=== PATIENT | female | born 1945 | race Caucasian/White ===

== ENCOUNTER 2020-06-13 12:36 | Inpatient (IN) | payer OTHER ==
[2020-06-13] MEDS ORDERED: SODIUM CHLORIDE 0.9% 500 ML INFUS.BAG IV ONE (14:44)
[2020-06-13] MEDS ORDERED: morphine CARPU-JECT 2 MG/1 ML DISP.SYRIN IVPUSH ONE (14:48)
[2020-06-13] MEDS ORDERED: ACETAMINOPHEN 1000 MG/100 ML VIAL (NON FORMULARY) IVPB ONE (14:48)
[2020-06-13 16:47] LABS: BASO % 0.5 % (0-2.0); EOS % 0.2 % (0-4.5); HEMATOCRIT 38.7 % (32.4-45.2); HEMOGLOBIN 12.8 GM/dL (10.7-15.3); LYMPH % 13.3 % (8-40); MCH 29.6 pg (25.7-33.7); MCHC 33.1 g/dl (32.0-36.0); MEAN CELL VOLUME 89.5 fl (80-96); MEAN PLT VOLUME 12.8 fl (7.5-11.1); MONO % 9.3 % (3.8-10.2); NEUT % 76.7 % (42.8-82.8); PLATELET COUNT 117 K/MM3 (134-434); RBC 4.33 M/mm3 (3.60-5.2); RDW 15.1 % (11.6-15.6); WHITE BLOOD COUNT 12.6 K/mm3 (4.0-10.0)
[2020-06-13] MEDS ORDERED: ACETAMINOPHEN INJECTION 100 ML IVPB ONE (17:22)
[2020-06-13 17:49] LABS: PLATELET ESTIMATE DECREASED
[2020-06-13] MEDS ORDERED: MORPHINE SULFATE 2 MG/ML VIAL ONE (18:30)
[2020-06-13 19:05] LABS: BLOOD UREA NITROGEN 8.2 mg/dL (7-18); CALCIUM 8.6 mg/dL (8.5-10.1)
[2020-06-13 19:06] LABS: ALBUMIN 2.5 g/dl (3.4-5.0)
[2020-06-13 19:09] LABS: CREATININE 0.7 mg/dL (0.55-1.3)
[2020-06-13 19:10] LABS: BILIRUBIN,TOTAL 1.8 mg/dL (0.2-1); TOT PROT 5.8 g/dl (6.4-8.2)
[2020-06-13 19:14] LABS: POTASSIUM 2.9 mmol/L (3.5-5.1)
[2020-06-13] MEDS ORDERED: ASPIRIN 325 MG TABLET PO ONE (19:24)
[2020-06-13] MEDS ORDERED: POTASSIUM CHLORIDE TABS 20 MEQ TABLET.ER (FP) PO ONE (19:26)
[2020-06-13] MEDS ORDERED: POTASSIUM CHLORIDE TABS 10 MEQ TABLET.ER (FP) ONE (19:43)
[2020-06-13] MEDS ORDERED: ASPIRIN 325 MG ENTERIC COATED TABLET (FP) ONE (19:43)
[2020-06-13 23:29] LABS: POTASSIUM 2.8 mmol/L (3.5-5.1)
[2020-06-14] MEDS ORDERED: KCL 10 MEQ IVPB 10 MEQ/100 ML INFUS.BAG IVPB ONE (01:25)
[2020-06-14] MEDS: KCL 10 MEQ IVPB 10 MEQ/100 ML INFUS.BAG IVPB SCH ×3 (01:26→03:35)
[2020-06-14] MEDS: INSULIN SLIDING SCALE (NOVOLOG) 1 VIAL SQ SCH ×5 (01:35→21:27)
[2020-06-14] MEDS: SODIUM CHLORIDE 1,000 ML with POTASSIUM CHLORIDE 40 MEQ IV SCH (03:47)
[2020-06-14 03:59] LABS: MAGNESIUM 1.5 mg/dL (1.8-2.4)
[2020-06-14 04:03] LABS: PHOSPHOROUS 2.9 mg/dL (2.5-4.9)
[2020-06-14] MEDS ORDERED: MAGNESIUM SULF 50% (8.12 MEQ/2 ML-1 GM VIAL) IVPB ONE (06:07)
[2020-06-14 06:32] LABS: BASO % 0.6 % (0-2.0); EOS % 0.8 % (0-4.5); HEMATOCRIT 38.2 % (32.4-45.2); HEMOGLOBIN 12.6 GM/dL (10.7-15.3); LYMPH % 20.7 % (8-40); MCH 29.8 pg (25.7-33.7); MEAN CELL VOLUME 90.3 fl (80-96); MEAN PLT VOLUME 13.2 fl (7.5-11.1); MONO % 10.7 % (3.8-10.2); NEUT % 67.2 % (42.8-82.8); PLATELET COUNT 114 K/MM3 (134-434); RBC 4.23 M/mm3 (3.60-5.2); RDW 15.2 % (11.6-15.6)
[2020-06-14 06:47] LABS: POTASSIUM 3.2 mmol/L (3.5-5.1)
[2020-06-14 06:54] LABS: CALCIUM 8.7 mg/dL (8.5-10.1)
[2020-06-14 06:55] LABS: ALBUMIN 2.4 g/dl (3.4-5.0); BLOOD UREA NITROGEN 8.2 mg/dL (7-18); MAGNESIUM 1.6 mg/dL (1.8-2.4)
[2020-06-14 06:58] LABS: CREATININE 0.6 mg/dL (0.55-1.3); PHOSPHOROUS 3.3 mg/dL (2.5-4.9)
[2020-06-14 06:59] LABS: BILIRUBIN,TOTAL 1.7 mg/dL (0.2-1); TOT PROT 5.4 g/dl (6.4-8.2)
[2020-06-14] MEDS ORDERED: MAGNESIUM SULFATE IN WATER 2 GM/50 ML IVPB IVPB ONE (08:18)
[2020-06-14] MEDS ORDERED: ENOXAPARIN NA (PORCINE) 40 MG/0.4 ML DISP.SYRIN SQ ONE (09:41)
[2020-06-14] MEDS ORDERED: ISOSORBIDE MONONITRATE 60 MG TAB.SR.24H (FP) PO ONE (09:41)
[2020-06-14] MEDS ORDERED: ISOSORBIDE MONONITRATE 60 MG TAB.SR.24H (FP) PO SCH (10:00)
[2020-06-14] MEDS: ENOXAPARIN NA (PORCINE) 40 MG/0.4 ML DISP.SYRIN SQ SCH (10:09)
[2020-06-14] MEDS ORDERED: POTASSIUM CHLORIDE TABS 20 MEQ TABLET.ER (FP) PO ONE ×2 (13:16→15:50)
[2020-06-14] MEDS: ROSUVASTATIN CA 20 MG TABLET (FP) PO SCH (22:25)
[2020-06-14] MEDS: MORPHINE SULFATE 2 MG/ML VIAL IVPUSH PRN (22:25)
[2020-06-15] MEDS: MORPHINE SULFATE 2 MG/ML VIAL IVPUSH PRN ×3 (06:02→18:42)
[2020-06-15] MEDS: INSULIN SLIDING SCALE (NOVOLOG) 1 VIAL SQ SCH ×4 (06:03→22:05)
[2020-06-15 08:17] LABS: POTASSIUM 3.5 mmol/L (3.5-5.1)
[2020-06-15 08:20] LABS: CALCIUM 8.5 mg/dL (8.5-10.1)
[2020-06-15 08:23] LABS: ALBUMIN 2.5 g/dl (3.4-5.0)
[2020-06-15 08:26] LABS: BILIRUBIN,TOTAL 1.2 mg/dL (0.2-1); CREATININE 0.7 mg/dL (0.55-1.3); TOT PROT 5.6 g/dl (6.4-8.2)
[2020-06-15 09:13] LABS: BASO % 0.6 % (0-2.0); EOS % 0.8 % (0-4.5); HEMATOCRIT 37.8 % (32.4-45.2); HEMOGLOBIN 12.6 GM/dL (10.7-15.3); MCH 30.1 pg (25.7-33.7); MCHC 33.4 g/dl (32.0-36.0); MEAN PLT VOLUME 12.6 fl (7.5-11.1); NEUT % 70.6 % (42.8-82.8); PLATELET COUNT 132 K/MM3 (134-434); RDW 14.8 % (11.6-15.6); WHITE BLOOD COUNT 10.1 K/mm3 (4.0-10.0)
[2020-06-15] MEDS: ENOXAPARIN NA (PORCINE) 40 MG/0.4 ML DISP.SYRIN SQ SCH (09:14)
[2020-06-15] MEDS: PANTOPRAZOLE 40 MG TABLET PO SCH (09:14)
[2020-06-15] MEDS ORDERED: POTASSIUM CHLORIDE 40 MEQ in SODIUM CHLORIDE 1,000 ML IV SCH (09:26)
[2020-06-15] MEDS: SODIUM CHLORIDE 1,000 ML with POTASSIUM CHLORIDE 40 MEQ IV SCH (09:31)
[2020-06-15] MEDS ORDERED: PT OWN MED DRAWER 7, Y5N ONE (09:38)
[2020-06-15] MEDS: ISOSORBIDE MONONITRATE 60 MG TAB.SR.24H (FP) PO SCH (09:41)
[2020-06-15 09:57] LABS: PLATELET ESTIMATE DECREASED
[2020-06-15] MEDS ORDERED: ASPIRIN COATED 81 MG TABLET.EC PO SCH (10:45)
[2020-06-15] MEDS: ONDANSETRON 4 MG/2 ML VIAL IVPUSH PRN (12:27)
[2020-06-15] MEDS: POTASSIUM CHLORIDE 40 MEQ in SODIUM CHLORIDE 1,000 ML IV SCH (14:30)
[2020-06-15] MEDS: ROSUVASTATIN CA 20 MG TABLET (FP) PO SCH (22:05)
[2020-06-16] MEDS: MORPHINE SULFATE 2 MG/ML VIAL IVPUSH PRN ×3 (03:34→19:53)
[2020-06-16] MEDS: INSULIN SLIDING SCALE (NOVOLOG) 1 VIAL SQ SCH ×4 (06:06→21:24)
[2020-06-16 08:52] LABS: POTASSIUM 4.2 mmol/L (3.5-5.1)
[2020-06-16 09:04] LABS: BASO % 0.5 % (0-2.0); EOS % 0.7 % (0-4.5); HEMATOCRIT 36.1 % (32.4-45.2); HEMOGLOBIN 11.9 GM/dL (10.7-15.3); MCH 29.4 pg (25.7-33.7); MCHC 32.9 g/dl (32.0-36.0); MEAN CELL VOLUME 89.3 fl (80-96); MEAN PLT VOLUME 12.4 fl (7.5-11.1); MONO % 11.2 % (3.8-10.2); NEUT % 64.6 % (42.8-82.8); PLATELET COUNT 149 K/MM3 (134-434); RBC 4.04 M/mm3 (3.60-5.2); RDW 15.3 % (11.6-15.6); WHITE BLOOD COUNT 9.3 K/mm3 (4.0-10.0)
[2020-06-16] MEDS: ISOSORBIDE MONONITRATE 60 MG TAB.SR.24H (FP) PO SCH (09:05)
[2020-06-16] MEDS: ENOXAPARIN NA (PORCINE) 40 MG/0.4 ML DISP.SYRIN SQ SCH (09:06)
[2020-06-16] MEDS: PANTOPRAZOLE 40 MG TABLET PO SCH (09:06)
[2020-06-16 09:07] LABS: ALBUMIN 2.4 g/dl (3.4-5.0); BLOOD UREA NITROGEN 9.8 mg/dL (7-18)
[2020-06-16 09:09] LABS: CALCIUM 8.3 mg/dL (8.5-10.1); CREATININE 0.7 mg/dL (0.55-1.3); MAGNESIUM 2.1 mg/dL (1.8-2.4)
[2020-06-16 09:10] LABS: TOT PROT 5.2 g/dl (6.4-8.2)
[2020-06-16] MEDS: ONDANSETRON 4 MG/2 ML VIAL IVPUSH PRN (11:59)
[2020-06-16] MEDS: traMADol HCL 50 MG TABLET PO PRN ×2 (13:24→21:23)
[2020-06-16] MEDS: ACETAMINOPHEN 1000 MG/100 ML VIAL (NON FORMULARY) IVPB PRN ×2 (13:25→23:43)
[2020-06-16] MEDS ORDERED: PT OWN MED DRAWER 7, Y5N ONE (14:48)
[2020-06-16] MEDS: POTASSIUM CHLORIDE 40 MEQ in SODIUM CHLORIDE 1,000 ML IV SCH (14:49)
[2020-06-16 15:03] VITALS: BMI 31.5
[2020-06-16] MEDS ORDERED: MORPHINE SULFATE 2 MG/ML VIAL IVPUSH ONE (16:35)
[2020-06-16] MEDS: ROSUVASTATIN CA 20 MG TABLET (FP) PO SCH (21:24)
[2020-06-17] MEDS: MORPHINE SULFATE 2 MG/ML VIAL IVPUSH PRN ×2 (02:23→09:13)
[2020-06-17] MEDS: POTASSIUM CHLORIDE 40 MEQ in SODIUM CHLORIDE 1,000 ML IV SCH (02:47)
[2020-06-17] MEDS: traMADol HCL 50 MG TABLET PO PRN (05:40)
[2020-06-17] MEDS: INSULIN SLIDING SCALE (NOVOLOG) 1 VIAL SQ SCH ×4 (06:06→23:34)
[2020-06-17] MEDS ORDERED: LORazepam 1 MG TABLET PO SCH (07:55)
[2020-06-17] MEDS: ISOSORBIDE MONONITRATE 60 MG TAB.SR.24H (FP) PO SCH (09:15)
[2020-06-17] MEDS: PANTOPRAZOLE 40 MG TABLET PO SCH (09:15)
[2020-06-17 10:11] LABS: POTASSIUM 5.2 mmol/L (3.5-5.1)
[2020-06-17 10:14] LABS: CALCIUM 9.2 mg/dL (8.5-10.1)
[2020-06-17 10:15] LABS: ALBUMIN 2.7 g/dl (3.4-5.0); BLOOD UREA NITROGEN 9.8 mg/dL (7-18); MAGNESIUM 1.9 mg/dL (1.8-2.4)
[2020-06-17 10:18] LABS: CREATININE 0.7 mg/dL (0.55-1.3); PHOSPHOROUS 3.3 mg/dL (2.5-4.9)
[2020-06-17 10:20] LABS: BILIRUBIN,TOTAL 1.3 mg/dL (0.2-1); TOT PROT 5.7 g/dl (6.4-8.2)
[2020-06-17 11:50] LABS: BASO % 0.5 % (0-2.0); EOS % 0.9 % (0-4.5); HEMATOCRIT 37.4 % (32.4-45.2); HEMOGLOBIN 12.4 GM/dL (10.7-15.3); LYMPH % 16.5 % (8-40); MCHC 33.2 g/dl (32.0-36.0); MEAN CELL VOLUME 90.3 fl (80-96); MEAN PLT VOLUME 11.8 fl (7.5-11.1); MONO % 9.6 % (3.8-10.2); NEUT % 72.5 % (42.8-82.8); PLATELET COUNT 165 K/MM3 (134-434); RBC 4.14 M/mm3 (3.60-5.2); RDW 15.5 % (11.6-15.6); WHITE BLOOD COUNT 11.7 K/mm3 (4.0-10.0)
[2020-06-17] MEDS ORDERED: ACETAMINOPHEN 1000 MG/100 ML VIAL (NON FORMULARY) IVPB PRN (14:24)
[2020-06-17] MEDS ORDERED: GABAPENTIN 300 MG CAPSULE PO SCH (14:30)
[2020-06-17] MEDS ORDERED: ONDANSETRON 4 MG/2 ML VIAL IVPUSH PRN (15:29)
[2020-06-17] MEDS: oxyCODONE HCL 5 MG TABLET PO PRN ×2 (15:44→23:32)
[2020-06-17] MEDS: GABAPENTIN 300 MG CAPSULE PO SCH (15:46)
[2020-06-17] MEDS: ROSUVASTATIN CA 20 MG TABLET (FP) PO SCH (23:54)
[2020-06-18] MEDS ORDERED: POTASSIUM CHLORIDE 40 MEQ in SODIUM CHLORIDE 1,000 ML IV SCH (01:37)
[2020-06-18] MEDS: INSULIN SLIDING SCALE (NOVOLOG) 1 VIAL SQ SCH ×4 (06:37→22:11)
[2020-06-18 09:08] LABS: BASO % 0.5 % (0-2.0); EOS % 0.6 % (0-4.5); HEMATOCRIT 38.8 % (32.4-45.2); HEMOGLOBIN 12.7 GM/dL (10.7-15.3); LYMPH % 14.4 % (8-40); MCH 29.6 pg (25.7-33.7); MCHC 32.7 g/dl (32.0-36.0); MEAN CELL VOLUME 90.7 fl (80-96); MONO % 9.3 % (3.8-10.2); NEUT % 75.2 % (42.8-82.8); PLATELET COUNT 186 K/MM3 (134-434); RBC 4.28 M/mm3 (3.60-5.2); RDW 15.6 % (11.6-15.6); WHITE BLOOD COUNT 13.8 K/mm3 (4.0-10.0)
[2020-06-18 09:26] LABS: POTASSIUM 4.9 mmol/L (3.5-5.1)
[2020-06-18 09:30] LABS: CALCIUM 9.1 mg/dL (8.5-10.1)
[2020-06-18 09:31] LABS: ALBUMIN 2.6 g/dl (3.4-5.0); BLOOD UREA NITROGEN 9.2 mg/dL (7-18); MAGNESIUM 1.9 mg/dL (1.8-2.4)
[2020-06-18 09:34] LABS: CREATININE 0.8 mg/dL (0.55-1.3); PHOSPHOROUS 3.8 mg/dL (2.5-4.9)
[2020-06-18 09:35] LABS: BILIRUBIN,TOTAL 1.4 mg/dL (0.2-1)
[2020-06-18 09:36] LABS: TOT PROT 5.7 g/dl (6.4-8.2)
[2020-06-18] MEDS ORDERED: ENOXAPARIN NA (PORCINE) 40 MG/0.4 ML DISP.SYRIN SQ SCH (10:00)
[2020-06-18] MEDS: GABAPENTIN 300 MG CAPSULE PO SCH (15:13)
[2020-06-18] MEDS: ISOSORBIDE MONONITRATE 60 MG TAB.SR.24H (FP) PO SCH (15:13)
[2020-06-18] MEDS: PANTOPRAZOLE 40 MG TABLET PO SCH (15:14)
[2020-06-18] MEDS: oxyCODONE HCL 5 MG TABLET PO PRN (15:24)
[2020-06-18] MEDS ORDERED: ACETAMINOPHEN 1000 MG/100 ML VIAL (NON FORMULARY) IVPB PRN (18:26)
[2020-06-18] MEDS: ROSUVASTATIN CA 20 MG TABLET (FP) PO SCH (22:10)
[2020-06-19] MEDS: oxyCODONE HCL 5 MG TABLET PO PRN ×3 (05:41→22:28)
[2020-06-19] MEDS: INSULIN SLIDING SCALE (NOVOLOG) 1 VIAL SQ SCH ×4 (07:45→21:15)
[2020-06-19 09:34] LABS: HEMATOCRIT 35.3 % (32.4-45.2); HEMOGLOBIN 11.5 GM/dL (10.7-15.3); MCH 29.8 pg (25.7-33.7); MCHC 32.7 g/dl (32.0-36.0); MEAN CELL VOLUME 91.2 fl (80-96); MEAN PLT VOLUME 12.4 fl (7.5-11.1); PLATELET COUNT 149 K/MM3 (134-434); RBC 3.87 M/mm3 (3.60-5.2); RDW 15.4 % (11.6-15.6); WHITE BLOOD COUNT 10.5 K/mm3 (4.0-10.0)
[2020-06-19] MEDS: ENOXAPARIN NA (PORCINE) 40 MG/0.4 ML DISP.SYRIN SQ SCH (11:10)
[2020-06-19] MEDS: ISOSORBIDE MONONITRATE 60 MG TAB.SR.24H (FP) PO SCH (11:10)
[2020-06-19] MEDS: PANTOPRAZOLE 40 MG TABLET PO SCH (11:10)
[2020-06-19] MEDS: GABAPENTIN 300 MG CAPSULE PO SCH (11:11)
[2020-06-19] MEDS ORDERED: INSULIN (NOVOLOG) ASPART 100 UNITS/ML 10ML VIAL ONE (20:57)
[2020-06-19] MEDS: ROSUVASTATIN CA 20 MG TABLET (FP) PO SCH (21:14)
[2020-06-20] MEDS: oxyCODONE HCL 5 MG TABLET PO PRN (06:11)
[2020-06-20] MEDS: INSULIN SLIDING SCALE (NOVOLOG) 1 VIAL SQ SCH (06:11)
[2020-06-20 06:26] VITALS: BP 112/62; PULSE 69; TEMP 97.9
[2020-06-20] MEDS: PANTOPRAZOLE 40 MG TABLET PO SCH (10:27)
[2020-06-20] MEDS: ISOSORBIDE MONONITRATE 60 MG TAB.SR.24H (FP) PO SCH (10:27)
[2020-06-20] MEDS: GABAPENTIN 300 MG CAPSULE PO SCH (10:27)
[2020-06-20] MEDS: ENOXAPARIN NA (PORCINE) 40 MG/0.4 ML DISP.SYRIN SQ SCH (10:28)
== END 2020-06-20 11:38 | disposition home health service (06) | DRG 435 ==
LOC: JER 12:36 → JERBED 20:34 → J4W 06-14 20:24 → J5S 06-17 14:33
PROVIDERS: ADMIT Internal Medicine; ATTEND Internal Medicine
PROC: 0FB23ZX Excision of Left Lobe Liver, Percutaneous Approach, Diagnostic (ICD-10-PCS; principal; 2020-06-18)
DX: C25.9 Malignant neoplasm of pancreas, unspecified (principal); I21.4 Non-ST elevation (NSTEMI) myocardial infarction; E46 Unspecified protein-calorie malnutrition; I69.354 Hemiplegia and hemiparesis following cerebral infarction affecting left non-dominant side; C78.7 Secondary malignant neoplasm of liver and intrahepatic bile duct; E87.6 Hypokalemia; I10 Essential (primary) hypertension; E11.40 Type 2 diabetes mellitus with diabetic neuropathy, unspecified; E78.5 Hyperlipidemia, unspecified; I25.10 Atherosclerotic heart disease of native coronary artery without angina pectoris; J44.9 Chronic obstructive pulmonary disease, unspecified; E66.9 Obesity, unspecified; Z68.31 Body mass index [BMI] 31.0-31.9, adult; Z95.5 Presence of coronary angioplasty implant and graft; G62.9 Polyneuropathy, unspecified; K21.9 Gastro-esophageal reflux disease without esophagitis
CPT/HCPCS: 36415; 70450-TC; 71045-TC-FY; 71046-TC-FY; 72146-TC; 72148-TC; 76942-TC; 80053; 82150; 82550; 82962; 83690; 83735; 84100; 84132; 84484; 85025; 85027; 87899; 88305-TC; 88341-TC; 93005; 93010; 93306-TC; 97116-GP; 97161-GP; 99285-25; C9803; J0131; U0003